=== PATIENT | female | born 1990 | race Caucasian/White ===

== ENCOUNTER 2020-09-30 04:05 | Inpatient (IN) | payer BC ==
[2020-09-30 04:39] LABS: APPEARANCE,URINE SLIGHTLY-CLOUDY; BILIRUBIN,URINE NEGATIVE (NEGATIVE); COLOR,URINE YELLOW; GLUCOSE, URINE NEGATIVE (NEGATIVE); KETONES,URINE NEGATIVE (NEGATIVE); LEUKOCYTE ESTERASE,URINE NEGATIVE (NEGATIVE); NITRITE,URINE NEGATIVE (NEGATIVE); PROTEIN,URINE NEGATIVE (NEGATIVE); URINE SPECIFIC GRAVITY 1.004; UROBILINOGEN,URINE NEGATIVE mg/dL (<2.0)
[2020-09-30] MEDS ORDERED: RINGERS SOLUTION,LACTATED 1,000 ML IV ONE (04:44)
[2020-09-30] MEDS ORDERED: RINGERS SOLUTION,LACTATED 1,000 ML IV PRN (04:44)
[2020-09-30] MEDS ORDERED: MISOPROSTOL 0.1 MG TABLET PV ONE (04:55)
[2020-09-30 04:57] LABS: URINE AMPHETAMINES SCREEN NEGATIVE; URINE BARBITURATES SCREEN NEGATIVE; URINE BENZODIAZEPINES SCREEN NEGATIVE; URINE COCAINE SCREEN NEGATIVE; URINE MARIJUANA (THC) SCREEN NEGATIVE; URINE METHADONE SCREEN NEGATIVE; URINE PHENCYCLIDINE SCREEN NEGATIVE
[2020-09-30] MEDS ORDERED: MISOPROSTOL 0.1 MG TABLET ONE (05:16)
[2020-09-30 05:22] LABS: ABSOLUTE BASOPHILS # (AUTO) 0.1 10^3/uL (0.0-0.2); ABSOLUTE EOSINOPHILS # (AUTO) 0.1 10^3/uL (0.0-0.6); ABSOLUTE LYMPHOCYTES (AUTO) 2.2 10^3/uL (0.5-4.7); ABSOLUTE MONOCYTES (AUTO) 0.9 10^3/uL (0.1-1.4); ABSOLUTE NEUT (AUTO) 8.4 10^3/uL (1.7-8.2); BASOPHILS % (AUTO) 0.5 % (0-2); EOSINOPHILS % (AUTO) 0.8 % (0-6); HEMATOCRIT 38.2 % (36.0-47.0); MEAN CORPUSCULAR HEMOGLOBIN 32.1 pg (27.0-33.4); MEAN CORPUSCULAR HGB CONC 34.1 g/dL (32.0-36.0); MEAN CORPUSCULAR VOLUME 94 fl (80-97); MONOCYTES % (AUTO) 7.4 % (3-13); PLATELET COUNT 163 10^3/uL (150-450); RED BLOOD COUNT 4.04 10^6/uL (3.72-5.28); RED CELL DISTRIBUTION WIDTH 13.1 % (11.5-14.0); SEGMENTED NEUTROPHILS % (AUTO) 72.3 % (42-78); TOTAL CELLS COUNTED % (AUTO) 100 %; WHITE BLOOD COUNT 11.7 10^3/uL (4.0-10.5)
--- NOTE | 2020-09-30 07:42 | Admission Physical ---
Datetime Report Generated by CPN: 09/30/2020 07:42 CURRENT ADMISSION Chief Complaint: Suspected Ruptured Membranes Indication for Induction: PROM Admit Impression : Term, Intrauterine ; No Active Labor; Ruptured Membranes Admit Plan: Admit to Unit; Initiate Labor Induction Protocol ALLERGIES Medication Allergies: No Medication Allergies: No Known Allergies (09/30/2020) Latex: No Latex Allergies OBSTETRICAL HISTORY EDC: 10/18/2020 00:00 : 1 Para: 0 Livin Gestational Diabetes: No Rh Sensitization: No Incompetent Cervix: No MAXIMILIAN: No Infertility: No ART Treatment: No Uterine Anomaly: No IUGR: No Hx Previous C/S: No Macrosomia: No Hx Loss/Stillborn: No PIH: No Hx : No Placenta Previa/Abruption: No Depression/PP Depression: No PTL/PROM: No Post Hemorrhage: No Current Procedures: Ultrasound Obstetrical History Comments: g1 - current SEE RECORDS Alcohol: No Marijuana : No Cocaine: No Other Illicit Drugs: No Cigarettes: Former Smoker. [id number] MEDICAL HISTORY Diabetes: No Blood Transfusion: No Pulmonary Disease (Asthma, TB): No Breast Disease: No Hypertension: No [employer] Forms Surgery: No Heart Disease: No Hosp/Surgery: No Autoimmune Disorder: No Anesthetic Complications: No Kidney Disease: No Abnormal Pap Smear: No Neuro/Epilepsy: No Psychiatric Disorders: No Other Medical Diseases: No Hepatitis/Liver Disease: No Significant Family History: No Varicosities/Phlebitis: No Trauma/Violence : No Thyroid Dysfunction: No INFECTIOUS HISTORY Gonorrhea: No Genital Herpes: No Chlamydia: No Tuberculosis: No Syphilis: No Hepatitis: No HIV/AIDS Exposure: No Rash or Viral Illness: No HPV: No PHYSICAL EXAM General: Normal HEENT: Normal Neurologic: Normal Thyroid: Deferred Heart: Normal Lungs: Normal Breast: Deferred Back: Normal Abdomen: Normal Genitourinary Exam: Normal Extremities: Normal DTRs: Normal Pelvic Type: Adequate Vital Signs: Reviewed VAGINAL EXAM Dilatation: ft Effacement: 60 Station: -2 Contraction Comments: q 2-3 FETUS A EGA: 37.3 Monitoring: External US FHR- Baseline: 125 Variability: Moderate 6-25bpm Accelerations: 15X15 Presentation: Vertex Admit Comment: 30yo at 37+3ega presents for spontaneous rupture of membranes at 0143. Clear fluid. Cvs was fingertip so will begin cytotec 25mcg. She failed 1 hr GTT, passed 3 hr GTT. FH were less than dates. EFW 09/14 was 2320g (17.6%) - 5#2oz. GBS negative. Admit for Induction - cytotec, pitocin and cooks catheter reviewed with patient PLANS FOR LABOR AND DELIVERY Labor and Delivery: None Pain Management: None Feeding Preference: Breast Benefit of Breast Feed Discussed: Yes Circumcision: N/A INFORMED CONSENT Informed Consent Obtained: Vaginal Delivery; Induction of Labor; Risks, Benefits and Alternatives Discussed Signature: with User ID: [email or web address]
[2020-09-30] MEDS ORDERED: OXYTOCIN/0.9 % SODIUM CHLORIDE 30 UNIT/500 ML RTUINJ IV PRN ×2 (10:09→17:50)
[2020-09-30] MEDS ORDERED: OXYTOCIN/0.9 % SODIUM CHLORIDE 30 UNIT/500 ML RTUINJ ONE (10:12)
[2020-09-30] MEDS ORDERED: NALBUPHINE HCL INJ 10 MG/1 ML AMPULE INJ ONE (11:14)
[2020-09-30] MEDS ORDERED: PROMETHAZINE HCL INJ 25 MG/1 ML VIAL IV ONE (11:14)
[2020-09-30] MEDS ORDERED: NALBUPHINE HCL INJ 10 MG/1 ML AMPULE ONE (11:17)
[2020-09-30] MEDS ORDERED: PROMETHAZINE HCL INJ 25 MG/1 ML VIAL ONE (11:17)
[2020-09-30] MEDS ORDERED: FENTANYL/BUPIVACAINE/NS/PF 300 MCG/150 ML RTUINJ EPI ONE (13:41)
[2020-09-30] MEDS ORDERED: EPHEDRINE SULFATE INJ 50 MG/1 ML AMPULE ONE (13:41)
[2020-09-30] MEDS ORDERED: ROPIVACAINE HCL 0.2% INJ/PF (2 MG/ML) 20 ML SDV ONE (13:42)
[2020-09-30] MEDS ORDERED: LIDOCAINE 1% INJ-PF (10 MG/ML) 30 ML SDV ONE (13:47)
[2020-09-30] MEDS ORDERED: MISOPROSTOL 0.2 MG TABLET ONE (13:47)
[2020-09-30] MEDS ORDERED: MAG HYDROX/AL HYDROX/SIMETH SUSP 30 ML UDCUP PO ONE (15:56)
[2020-09-30] MEDS ORDERED: MAG HYDROX/AL HYDROX/SIMETH SUSP 30 ML UDCUP ONE (15:58)
[2020-09-30] MEDS ORDERED: CEFAZOLIN 2 GM/D5W RTU 2 GM/50 ML RTUPB IV ONE (17:45)
[2020-09-30] MEDS ORDERED: NA PHOS,M-B/NA PHOS,DI-BA (ADULT) 133 ML ENEMA PR PRN (17:50)
[2020-09-30] MEDS ORDERED: BENZOCAINE/MENTHOL AEROSOL SPRAY 56 ML TOP PRN (17:50)
[2020-09-30] MEDS ORDERED: PSEUDOEPHEDRINE HCL 30 MG TABLET PO PRN (17:50)
[2020-09-30] MEDS ORDERED: ZOLPIDEM TARTRATE 5 MG TABLET PO PRN (17:50)
[2020-09-30] MEDS ORDERED: ACETAMINOPHEN WITH CODEINE #3 TABLET PO PRN ×2 (17:50)
[2020-09-30] MEDS ORDERED: DIPHENHYDRAMINE HCL 25 MG CAPSULE PO PRN (17:50)
[2020-09-30] MEDS ORDERED: PROMETHAZINE HCL 25 MG TABLET PO PRN (17:50)
[2020-09-30] MEDS ORDERED: PROMETHAZINE HCL 25 MG SUPP.RECT PR PRN (17:50)
[2020-09-30] MEDS ORDERED: GLYCERIN/WITCH HAZEL LEAF 1 EACH MED..WIPE TP PRN (17:50)
[2020-09-30] MEDS ORDERED: ACETAMINOPHEN 650 MG SUPP.RECT PR PRN (17:50)
[2020-09-30] MEDS ORDERED: PROMETHAZINE HCL INJ 25 MG/1 ML VIAL IV PRN (17:50)
[2020-09-30] MEDS ORDERED: DIBUCAINE 1% OINTMENT 28 GM TP PRN (17:50)
[2020-09-30] MEDS ORDERED: ACETAMINOPHEN 325 MG TABLET PO PRN (17:50)
[2020-09-30] MEDS ORDERED: MEASLES,MUMPS&RUBELLA VACC/PF 0.5 ML VIAL SUBCUT PRN (17:50)
[2020-09-30] MEDS ORDERED: DIPH/PERTUSS(ACELL)/TETANUS VAC/PF 0.5 ML SYR (>=10YO) IM PRN (17:50)
[2020-09-30] MEDS ORDERED: MAGNESIUM HYDROXIDE SUSP 30 ML UDCUP PO PRN (17:50)
[2020-09-30] MEDS ORDERED: CEFAZOLIN 2 GM/D5W RTU 2 GM/50 ML RTUPB IV SCH (18:00)
--- NOTE | 2020-09-30 18:11 | Warning Signs in Babies ---
VOD Warning Signs Datetime Report Generated by [facility]: 09/30/2020 18:11 VOD#608 -Warning Signs in Babies: Needs to be viewed. (09/30/2020 02:57:Birgit Jacobson RN)
[2020-09-30] MEDS: FERROUS SULFATE 325 MG TABLET PO SCH (18:29)
[2020-09-30] MEDS: DOCUSATE SODIUM 100 MG CAPSULE PO SCH (18:29)
[2020-09-30] MEDS: IBUPROFEN 800 MG TABLET PO SCH ×2 (21:08→21:09)
[2020-09-30] MEDS: FAMOTIDINE 20 MG TABLET PO SCH (21:09)
[2020-10-01] MEDS: IBUPROFEN 800 MG TABLET PO SCH ×3 (05:33→22:54)
[2020-10-01 05:35] LABS: HEMATOCRIT 31.4 % (36.0-47.0); MEAN CORPUSCULAR HEMOGLOBIN 33.1 pg (27.0-33.4); MEAN CORPUSCULAR HGB CONC 34.9 g/dL (32.0-36.0); MEAN CORPUSCULAR VOLUME 95 fl (80-97); PLATELET COUNT 143 10^3/uL (150-450); RED BLOOD COUNT 3.31 10^6/uL (3.72-5.28); RED CELL DISTRIBUTION WIDTH 13.4 % (11.5-14.0)
--- NOTE | 2020-10-01 10:00 | PDOC PROGRESS REPORT ---
Subjective-OB Progress Note for:: 10/01/20 Subjective: Feeling good, no c/o, scant bleeding, voiding, Physical Exam (OB) Vital Signs: Temp Pulse Resp BP Pulse Ox 97.6 F 74 18 127/83 H 100 10/01/20 07:31 10/01/20 07:31 10/01/20 07:31 10/01/20 07:31 10/01/20 07:31 Intake & Output 09/30/20 10/01/20 10/02/20 06:59 06:59 06:59 Intake Total 588 Balance 588 Weight 67.5 kg - PIH/Pre-Eclampsia DTR's: 2 + Clonus: Negative Headache: Absent Epigastric Pain: No Visual Changes: No - Maternal Morbidity 59. Maternal Morbidity (serious complications experinced by the mother associated with labor and delivery: None of the above - Lochia Lochia Amount: Small 10-25 ml Lochia Color: Rubra/Red - Abdomen Description: Soft Hernia Present: No Fundal Description: Firm, Midline Fundal Height: u/u - u/2 Objective-Diagnostic Laboratory: 10/01/20 05:08 10/01/20 05:08 WBC 14.0 H RBC 3.31 L Hgb 11.0 L Hct 31.4 L MCV 95 MCH 33.1 MCHC 34.9 RDW 13.4 Plt Count 143 L Assessment and Plan(PN) - Assessment and Plan (1) Normal vaginal delivery Is this a current diagnosis for this admission?: Yes (2) Premature rupture of membranes Qualifiers: PROM onset of labor timing: onset of labor within 24 hours of rupture Is this a current diagnosis for this admission?: Yes - Time Spent with Patient Time with patient: Less than 15 minutes Medications reviewed and adjusted accordingly: Yes - Disposition Anticipated Discharge Disposition: Home, Self Care Anticipated Discharge Timeframe: within 24 hours
[2020-10-01] MEDS: FAMOTIDINE 20 MG TABLET PO SCH ×2 (10:18→22:54)
[2020-10-01] MEDS: FERROUS SULFATE 325 MG TABLET PO SCH ×2 (10:18→18:21)
[2020-10-01] MEDS: DOCUSATE SODIUM 100 MG CAPSULE PO SCH ×2 (10:18→18:21)
[2020-10-01] MEDS: PRENATAL VITAMIN W DHA CAPSULE PO SCH (10:18)
[2020-10-01] MEDS: SENNOSIDES/DOCUSATE 8.6-50 MG 1 EACH TABLET PO SCH (10:18)
[2020-10-02] MEDS: IBUPROFEN 800 MG TABLET PO SCH (07:27)
[2020-10-02 07:53] VITALS: BP 130/86
--- NOTE | 2020-10-02 09:19 | PDOC DISCHARGE SUMMARY ---
Impression - Admit/DC Date/PCP Admission Date/Primary Care Provider: 09/30/20 04:47 Discharge Date: 10/02/20 - PP Day #2, doing well, no complaints, A+, Rubella immune, - Discharge Diagnosis (1) Normal vaginal delivery Is this a current diagnosis for this admission?: Yes (2) Premature rupture of membranes Is this a current diagnosis for this admission?: Yes - Additional Information Resuscitation Status: Full Code Discharge Diet: As Tolerated, Regular Discharge Activity: Activity As Tolerated, No Lifting Over 10 Pounds, Pelvic Rest Prescriptions: Ibuprofen [Motrin 800 mg Tablet] 800 mg PO Q8 #60 tablet Home Medications: Vits96/Iron Fum/Folic [ Tablet] 1 each PO DAILY 09/30/20 Ibuprofen [Motrin 800 mg Tablet] 800 mg PO Q8 #60 tablet 10/02/20 HPI Reason(s) for Admission: Onset of Labor Procedures: Ultrasound Intrapartum Procedure(s): Spontaneous Vaginal Delivery Complication(s): Laceration-Periurethral Laceration-Degree: 1st Hospital Course 59. Maternal Morbidity (serious complications experinced by the mother associated with labor and delivery: None of the above Results Laboratory Results: WBC 14.0 10^3/uL (4.0-10.5) H 10/01/20 05:08 RBC 3.31 10^6/uL (3.72-5.28) L 10/01/20 05:08 Hgb 11.0 g/dL (12.0-15.5) L 10/01/20 05:08 Hct 31.4 % (36.0-47.0) L 10/01/20 05:08 MCV 95 fl (80-97) 10/01/20 05:08 MCH 33.1 pg (27.0-33.4) 10/01/20 05:08 MCHC 34.9 g/dL (32.0-36.0) 10/01/20 05:08 RDW 13.4 % (11.5-14.0) 10/01/20 05:08 Plt Count 143 10^3/uL (150-450) L 10/01/20 05:08 Lymph % (Auto) 19.0 % (13-45) 09/30/20 05:00 [place] % (Auto) 7.4 % (3-13) 09/30/20 05:00 Eos % (Auto) 0.8 % (0-6) 09/30/20 05:00 Baso % (Auto) 0.5 % (0-2) 09/30/20 05:00 Absolute Neuts (auto) 8.4 10^3/uL (1.7-8.2) H 09/30/20 05:00 Absolute Lymphs (auto) 2.2 10^3/uL (0.5-4.7) 09/30/20 05:00 Absolute Monos (auto) 0.9 10^3/uL (0.1-1.4) 09/30/20 05:00 Absolute Eos (auto) 0.1 10^3/uL (0.0-0.6) 09/30/20 05:00 Absolute Basos (auto) 0.1 10^3/uL (0.0-0.2) 09/30/20 05:00 Seg Neutrophils % 72.3 % (42-78) 09/30/20 05:00 Urine Color YELLOW 09/30/20 04:24 Urine Appearance SLIGHTLY-CLOUDY 09/30/20 04:24 Urine pH 7.0 (5.0-9.0) 09/30/20 04:24 Ur Specific [place] 1.004 09/30/20 04:24 Urine Protein NEGATIVE mg/dL (NEGATIVE) 09/30/20 04:24 Urine Glucose (UA) NEGATIVE mg/dL (NEGATIVE) 09/30/20 04:24 Urine Ketones NEGATIVE mg/dL (NEGATIVE) 09/30/20 04:24 Urine Blood SMALL (NEGATIVE) H 09/30/20 04:24 Urine Nitrite NEGATIVE (NEGATIVE) 09/30/20 04:24 Urine Bilirubin NEGATIVE (NEGATIVE) 09/30/20 04:24 Urine Urobilinogen NEGATIVE mg/dL (<2.0) 09/30/20 04:24 Ur Leukocyte Esterase NEGATIVE (NEGATIVE) 09/30/20 04:24 Urine Ascorbic Acid NEGATIVE (NEGATIVE) 09/30/20 04:24 Membranes Rupture POSITIVE (NEGATIVE) H 09/30/20 04:24 Urine Opiates Screen NEGATIVE 09/30/20 04:24 Urine Methadone Screen NEGATIVE 09/30/20 04:24 Ur Barbiturates Screen NEGATIVE 09/30/20 04:24 Ur Phencyclidine Scrn NEGATIVE 09/30/20 04:24 Ur Amphetamines Screen NEGATIVE 09/30/20 04:24 U Benzodiazepines Scrn NEGATIVE 09/30/20 04:24 Urine Cocaine Screen NEGATIVE 09/30/20 04:24 U Marijuana (THC) Screen NEGATIVE 09/30/20 04:24 RPR NONREACTIVE (NONREACTIVE) 09/30/20 05:00 Blood Type A POSITIVE 09/30/20 05:00 Antibody Screen NEGATIVE 09/30/20 05:00 Plan Health Concerns: fever precautions reviewed Plan of Treatment: d/c home, f/up with [facility] in 4 wks for PP check up or contact [facility] if flu like symptoms or fever Time Spent: Less than 30 Minutes
[2020-10-02] MEDS: SENNOSIDES/DOCUSATE 8.6-50 MG 1 EACH TABLET PO SCH (09:30)
[2020-10-02] MEDS: PRENATAL VITAMIN W DHA CAPSULE PO SCH (09:30)
[2020-10-02] MEDS: FAMOTIDINE 20 MG TABLET PO SCH (09:30)
[2020-10-02] MEDS: FERROUS SULFATE 325 MG TABLET PO SCH (09:30)
[2020-10-02] MEDS: DOCUSATE SODIUM 100 MG CAPSULE PO SCH (09:30)
--- NOTE | 2020-10-17 11:01 | Delivery Summary ---
Del Sum A-C Datetime Report Generated by CPN: 10/17/2020 11:01 DELIVERY PERSONNEL DELIVERY PERSONNEL: [id number] Delivery Doctor:: Lyla Langley MD Labor and Delivery Nurse:: Birgit Jacobson RNmanagement services technician Nurse:: Juan Portillo RN Nursery Nurse:: Alba Monge RN Head Of Integrated Media/BI ARCHITECT: Tegan Hernandez CST Head Of Integrated Media/BI ARCHITECT: Sandie Downey, DIATHERMY EQUIPMENT REPAIRER MATERNAL INFORMATION Delivery Anesthesia: Epidural Medications After Delivery: Pitocin 30 Units in 500ml NS/D5W Delivery QBL: 50 Maternal Complications: None Provider Comments: Called to patients room as she was complete and +3 station. She pushed through a few contractions and delivered a viable female . Nuchal cord x1 noted loose and easily reduced. The shoulders and rest of the body delivered easily. COrd clamping delayed for 30 seconds as infant was vigorous. COrd then clamped x2, cut and infant placed on Mothers chest. NUrsery staff attending. Fundus firm. Repair as above. Both stable. LABOR SUMMARY EDC: 10/18/2020 00:00 No. Babies in Womb: 1 Attempted: Yes Labor Anesthesia: IV Sedation LABOR INFORMATION Reason for Induction: Not Applicable; Premature Rupture of Membranes Onset of Labor: 09/30/2020 14:27 Complete Dilatation: 09/30/2020 16:43 Cervical Ripening Agents: Cytotec @ Oxytocin: Augmentation Group B Beta Strep: negative Antibiotics # of Doses: 1 Antibiotics Time of Last Dose: 09/30/2020 17:48 Name of Antibiotic Given: ancef 2 gm Steroids Given: None Reason Steroids Not Administered: Not Applicable [facility] Membranes Rupture Method: Spontaneous Rupture of Membranes: 09/30/2020 01:47 Length of Rupture (hr): 15.72 Amniotic Fluid Color: Clear Amniotic Fluid Color: Clear Amniotic Fluid Amount: Small Amniotic Fluid Amount: Small Amniotic Fluid Odor: Normal STAGES OF LABOR Stage 1 hr: 2 Stage 1 min: 16 Stage 2 hr: 0 Stage 2 min: 47 Stage 3 hr: 0 Stage 3 min: 4 Total Time in Labor hr: 3 Total Time in Labor min: 7 VAGINAL DELIVERY Episiotomy: None Laceration #1: Perineal Laceration Extension #1: First Degree Other Laceration: Bilateral labial Laceration Repair: Yes Laceration Repair Note: Repaired with chromic 3-0 running fashion Sponge Count Correct: Yes Sharps Count Correct: Yes CSECTION DELIVERY Primary Indication: N/A Secondary Indication: N/A CSection Incidence: N/A Labor: N/A Elective: N/A CSection Incision: N/A Uterine Closure: N/A BABY A INFORMATION Infant Delivery Date/Time: 09/30/2020 17:30 Method of Delivery: Vaginal Method of Delivery: Vaginal Nurse Controlled Delivery: No Born in Route : No : N/A Forceps: N/A Vacuum Extraction: N/A Shoulder Dystocia : No ASSISTED DELIVERY BABY A Station Vacuum/Forcep Apply: tug of war PRESENTATION/POSITION BABY A Presentation: Cephalic Cephalic Presentation: Vertex Vertex Position: Left Occipital Anterior Breech Presentation: N/A PLACENTA INFORMATION BABY A Placenta Delivery Time : 09/30/2020 17:34 Placenta Method of Delivery: Spontaneous Placenta Method of Delivery: Spontaneous Placenta Status: Delivered SCORES BABY A Heart Rate 1 min: >100 bpm Resp Effort 1 min: Slow, Irregular Reflex Irritability 1 min: Cough or Sneeze or Pulls Away Muscle Tone 1 min: Active Motion Color 1 min: Body [place], Extremities Blue Resuscitation Effort 1 min: Tactile Stimulation SCORE 1 MIN: 8 Heart Rate 5 min: >100 bpm Resp Effort 5 min: Good [place] Reflex Irritability 5 min: Cough or Sneeze or Pulls Away Muscle Tone 5 min: Active Motion Color 5 min: Body [place], Extremities Blue Resuscitation Effort 5 min: N/A SCORE 5 MIN: 9 INFANT INFORMATION BABY A Gestational Age at Delivery: 37.3 Gestational Status: Early Term- 37- 38.6 Weeks Infant Outcome : Liveborn Condition : Stable Infant Sex: Female Sex: Female IDENTIFICATION BABY A Infant Verification Date/Time: 09/30/2020 17:42 ID Band Number: [id number] Mother's Name Verified: Yes RN Verifying Infant: Andrew Dempsey RN/T Bandar RN WEIGHT/LENGTH BABY A Birthweight (gm): 2660 Weight (lb): 5 Infant Weight (oz): 14 Infant Length (in): 17.50 Length (cm): 44.45 CORD INFORMATION BABY A No. Cord Vessels: 3 Nuchal Cord : Around Neck x1, Loose Cord Blood Taken: Yes-For Storage (Mom's Blood type +) Infant Suction: None ASSESSMENT BABY A Infant Complications: None Physical Findings at Delivery: Within Normal Limits Respirations: Appears Normal Skin to Skin: Yes Skin to Skin: Yes Skin to Skin Time (min): 20 Unemployment Benefits Claims Taker/ALS Called : No Care By: Gagandeep Monge, RN Transferred To: Remains with Mother BABY B INFORMATION : N/A SIGNATURES Signature: with User ID: [email or web address] : with User ID: [email or web address]
== END 2020-10-02 11:45 | disposition home or self-care (01) | DRG 807 ==
LOC: LC 04:05 → LR 04:47 → 2S 20:18
PROVIDERS: ADMIT Student in an Organized Health Care Education/Training Program; ATTEND Student in an Organized Health Care Education/Training Program
PROC: 10E0XZZ Delivery of Products of Conception, External Approach (ICD-10-PCS; principal; 2020-09-30)
PROC: 0UQMXZZ Repair Vulva, External Approach (ICD-10-PCS; 2020-09-30)
DX: O42.02 Full-term premature rupture of membranes, onset of labor within 24 hours of rupture (principal); Z37.0 Single live birth; O71.82 Other specified trauma to perineum and vulva; O69.81X0 Labor and delivery complicated by cord around neck, without compression, not applicable or unspecified; Z20.828 Contact with and (suspected) exposure to other viral communicable diseases; Z87.891 Personal history of nicotine dependence; Z3A.37 37 weeks gestation of pregnancy
CPT/HCPCS: 1967; 36415; 59025; 80307; 81005; 84112; 85025; 85027; 86592; 86850; 86900; 86901; J0690; J2300; J2550; J2590; J2795; J3010; J3490